=== PATIENT | female | born 2000 | race Caucasian/White ===

== ENCOUNTER 2021-10-06 10:25 | Outpatient (REF) | payer OTHER, MEDICAID, SELFPAY | END 2021-10-06 10:26 | disposition home or self-care (01) | LOC: HO.HMGCLDS 10:25 | PROVIDERS: Visit Provider Internal Medicine | DX: Z20.822 Contact with and (suspected) exposure to COVID-19 (principal) | CPT/HCPCS: C9803; U0003; U0005 ==

== ENCOUNTER 2024-04-23 09:22 | Outpatient (AMB) | payer OTHER, MEDICAID, SELFPAY ==
--- NOTE | 2024-04-23 09:22 | MHC.OFFWIV ---
Intake Vital Signs 04/23/24 09:24 Height 5 ft 2 in Weight 112 lb BMI 20.5 BP 112/70 Blood Pressure Location Rt brachial Position Sitting Pulse 77 Pulse Source Pulse Oximeter Temp 98.0 F Temp Source Oral Pulse Oximetry (%) 98 Oxygen Delivery Method Room Air Intake Visit Reasons: [employer] cough RT side rib pain Intake Note: pt is here c/o cough and RT side rib pain. Started a few weeks ago. Worse at night Patient Tobacco Use Status: Never used Tobacco Allergies Bactrim Allergy (Unknown, Uncoded 04/23/24 09:28) Rash Do you need a note to return to daycare/school/sports/work: Yes HPI HPI Comments History of Present Illness Details Patient is a 23-year-old female complaining of 2 weeks of a cough. She states she had some head congestion but that is mostly gone now, she also had some sinus pain but that is also gone. She states she is coughing a lot and yesterday she felt a pop in her ribs and it hurts when she takes a deep breath. She denies any fevers, wheezing, shortness of breath. She denies a history of asthma. [facility] Social History Patient Tobacco Use Status: Never used Tobacco Review of Systems Const All systems reviewed & are unremarkable except as noted in HPI and below Physical Exam Vital Signs: Last Vital Signs Temp 98.0 F 04/23/24 09:24 Pulse 77 04/23/24 09:24 BP 112/70 04/23/24 09:24 Pulse Ox 98 04/23/24 09:24 Oxygen Delivery Method Room Air 04/23/24 09:24 BMI result Body Mass Index 20.5 Const General: cooperative, healthy appearing, comfortable and no acute distress Orientation/consciousness: patient oriented x3 Limitations: no limitations HEENT Head: Yes normal to inspection Ears: hearing grossly normal bilaterally, external ears normal and TM's normal bilaterally General nose exam: Normal external nose present, Normal nares present and No nasal discharge present Face and sinus: Yes normal facial exam and Yes sinuses nontender Mouth: Normal oral and palatal mucosa present and moist mucous membranes Throat: Yes tonsils normal, Yes uvula midline and Yes posterior oropharynx abnormal (Erythema) Eyes General: appearance normal, both eyes and all related structures Neck Neck: Yes normal visual inspection Resp Effort & Inspection: normal respiratory effort, able to speak in complete sentences, no respiratory distress, not tachypneic, no tripod positioning and no use of accessory muscles Auscultation: clear to auscultation bilaterally Cardio Rate: regular rate Rhythm: regular rhythm Heart sounds: normal S1 and S2 Skin General skin exam: no rashes or lesions noted Neuro General: patient oriented x3 Extrem General: Yes normal to inspection and Yes no clubbing, cyanosis or edema Results AMB Rapid Strep AMB Rapid Strep Negative Last Edit by Amadeo Velazco CMA on 04/23/24 09:42 Assessment & Plan Assessment & Plan (1) Atypical pneumonia: Code(s): J18.9 - Pneumonia, unspecified organism Plan: Lung sounds in all peng, vital signs stable, we will treat with Azithromycin Rapid strep negative Plan see above Orders: Orders AMB Rapid Strep Screen Today Z13.9 - Encounter for screening, unspecified Medications: New azithromycin For 250 mg dose pack: take 500 mg today (day 1), then 250 mg for 4 days (days 2-5) PO 6 tabs 0RF Coding Level of Care Code New Pt Level 3 (07427) Diagnoses Atypical pneumonia J18.9
[2024-04-23 09:24] VITALS: BP 112/70; PULSE 77; TEMP 36.7; O2SAT 98; BMI 20.5
== END 2024-04-23 09:53 | disposition home or self-care (01) ==
PROVIDERS: Visit Provider Physician Assistant
DX: J18.9 Pneumonia, unspecified organism (principal)
CPT/HCPCS: 87880; 99203